=== PATIENT | male | born 1995 | race Two or more races ===

== ENCOUNTER 2019-05-14 05:12 | Emergency (ER) | payer MEDICAID, OTHER ==
[~2019-05-14] VITALS: Ht 188 cm; Wt 124.7 kg
[2019-05-14] MEDS ORDERED: ONDANSETRON HCL 4 MG/2 ML VIAL ONE (05:29)
[2019-05-14] MEDS ORDERED: ONDANSETRON HCL 4 MG/2 ML VIAL IV ONE (05:30)
[2019-05-14] MEDS ORDERED: MORPHINE SULFATE 4 MG/ML SYR/VIAL IV ONE (05:45)
[2019-05-14] MEDS ORDERED: SODIUM CHLORIDE 0.9% 1,000 ML IV ONE (05:45)
[2019-05-14 06:19] LABS: Basophils # (auto) 0 uL; Eosinophils # (auto) 0.1 uL; Mean Corpuscular Volume 80.5 fL (80.0-100.0); Monocytes # (auto) 0.4 uL
[2019-05-14 06:21] LABS: Basophils % (auto) 0.3 % (0.0-2.0); Eosinophils % (auto) 0.5 % (0.0-7.0); Hematocrit 33.5 % (41.0-53.0); Hemoglobin 11.1 g/dL (13.5-17.5); Lymphocytes % (auto) 8.5 % (10.0-50.0); Mean Corpuscular Hemoglobin 26.7 pg (28.0-32.0); Mean Corpuscular Hgb Conc. 33.2 g/dL (32.0-36.0); Monocytes % (auto) 3.5 % (0.0-12.0); Neutrophils # (auto) 10.6 uL; Neutrophils % (auto) 87.2 % (37.0-80.0); Nucleated Red Blood Cells % 0.1 %; Platelet Count (auto) 318 10^3/uL (140-450); Red Blood Cells 4.17 10^6/uL (4.5-5.90); Red Cell Distribution Width 12.3 % (11.8-14.3); White Blood Cell 12.1 10^3/uL (4.4-10.8)
[2019-05-14 07:00] LABS: Albumin 3.4 g/dL (3.4-5.0); BUN/Creatinine Ratio 10.7; Calcium 8.8 mg/dL (8.5-10.1); Potassium 3.5 mmol/L (3.5-5.1)
[2019-05-14 07:02] LABS: Bilirubin, Total 0.5 mg/dL (0.2-1.0); Total Protein 7.8 g/dL (6.4-8.2)
[2019-05-14] MEDS ORDERED: SODIUM CHLORIDE 0.9% 1,000 ML IVB ONE (07:28)
[2019-05-14] MEDS ORDERED: FLEET MINERAL OIL ENEMA 133 ML PR ONE (07:30)
[2019-05-14] MEDS ORDERED: PROMETHAZINE HCL 25 MG/ML 1ML IV PRN (07:30)
[2019-05-14] MEDS ORDERED: KETOROLAC TROMETH 30 MG/ML 1ML VIAL IV ONE (07:30)
[2019-05-14 09:38] LABS: Urine Amorphous Crystal FEW /hpf (None Seen); Urine Bacteria NONE SEEN /hpf (None Seen); Urine Blood Negative /uL (Negative); Urine Specific Gravity 1.022 (1.001-1.035); Urine WBC 8 /hpf (0 - 3)
[2019-05-14 10:00] VITALS: BP 169/100
== END 2019-05-14 12:34 | disposition home or self-care (01) ==
LOC: EDBD 05:12 → ER 05:16
DX: K40.90 Unilateral inguinal hernia, without obstruction or gangrene, not specified as recurrent (principal); K59.00 Constipation, unspecified; K76.0 Fatty (change of) liver, not elsewhere classified; E66.01 Morbid (severe) obesity due to excess calories; I10 Essential (primary) hypertension; S39.81XD Other specified injuries of abdomen, subsequent encounter; S82.92XD Unspecified fracture of left lower leg, subsequent encounter for closed fracture with routine healing; Z68.35 Body mass index [BMI] 35.0-35.9, adult; F12.10 Cannabis abuse, uncomplicated
CPT/HCPCS: 36415; 74176; 80053; 81001; 83690; 85025; 94761; 96361; 96374; 96375; 99284; J1885; J2270; J2405; J2550; J7030

== ENCOUNTER 2020-12-20 07:05 | Emergency (ER) | payer MEDICAID ==
[~2020-12-20] VITALS: Ht 188 cm; Wt 104.3 kg
[2020-12-20 07:18] VITALS: BP 128/78
[2020-12-20] MEDS ORDERED: METHOCARBAMOL 500 MG TAB PO ONE (08:00)
[2020-12-20] MEDS ORDERED: KETOROLAC TROMETH 60MG/2ML VIAL IM ONE (08:00)
[2020-12-20] MEDS ORDERED: methylPREDNISolone SOD SUCC 125 MG/2 ML VL IM ONE (09:45)
== END 2020-12-20 11:11 | disposition home or self-care (01) ==
LOC: ER 07:05 → EDBD 07:05 → ER 10:51
DX: M54.16 Radiculopathy, lumbar region (principal); F12.10 Cannabis abuse, uncomplicated; M25.551 Pain in right hip
CPT/HCPCS: 72100; 93971; 96372; 99284; J1885; J2930